=== PATIENT | female | born 1995 | race Caucasian/White ===

== ENCOUNTER 2021-09-28 15:39 | Emergency (ER) | payer BC, OTHER ==
[2021-09-28] MEDS ORDERED: Ondansetron 4 MG/2 ML SDV IVPUSH ONE (18:06)
[2021-09-28] MEDS ORDERED: diphenhydrAMINE 50 MG/ML SDV IVPUSH ONE (18:06)
[2021-09-28] MEDS ORDERED: Sodium Chloride 0.9% 1,000 ML IV STA (18:06)
[2021-09-28] MEDS ORDERED: Ketorolac 30 MG/ML SDV IVPUSH ONE (18:06)
== END 2021-09-28 19:25 | disposition home or self-care (01) ==
LOC: JD.ED 15:39
DX: G43.909 Migraine, unspecified, not intractable, without status migrainosus (principal)
CPT/HCPCS: 36415; 80053; 81001; 85025; 96374; 96375; 99283; J1200; J1885; J2405; J7030

== ENCOUNTER 2023-11-10 20:50 | Emergency (ER) | payer BC, MEDICAID, OTHER ==
[2023-11-10] MEDS: Sodium Chloride 0.9% 1,000 ML IV SCH (21:45)
[2023-11-10] MEDS: Ketorolac 15 MG/ML SDV IVPUSH ONE (21:46)
[2023-11-10] MEDS: Prochlorperazine 10 MG/2 ML SDV IVPUSH ONE (21:47)
[2023-11-10] MEDS: diphenhydrAMINE 50 MG/ML SDV IVPUSH ONE (21:47)
== END 2023-11-10 22:38 | disposition home or self-care (01) ==
LOC: JD.ED 20:50
DX: G44.209 Tension-type headache, unspecified, not intractable (principal); Z79.899 Other long term (current) drug therapy
CPT/HCPCS: 96374; 96375; 99283; J0780; J1200; J1885; J7030